=== PATIENT | female | born 1995 | race Caucasian/White ===

== ENCOUNTER 2016-06-03 14:44 | Emergency (ER) | payer OTHER ==
[~2016-06-03] VITALS: Ht 167.6 cm; Wt 121.8 kg
[2016-06-03 14:49] VITALS: BP 145/96; PULSE 106; RESP 20; O2SAT 96
--- NOTE | 2016-06-03 17:43 | ED.REPORT ---
HPI-Psychiatric Illness Date of Service Jun 03, 2016 ED Provider: Iraida Xavier History of Present Illness: depression and anxiety. effexor 150 mg daily not working, denies si, went to [facility] ER. first appointment is 2/2 Dr. Matos in [place]. primary care is Kitty caba in [facility]. Recent move from [facility]. also on control Nursing Notes Stated Complaint: DEPRESSION/ANXIETY Chief Complaint: Psychiatric Complaint Nursing Notes Reviewed: Yes Allergies: Coded Allergies: No Known Allergies (Unverified , 06/03/16) General Time Seen by MD: 17:36 Chief Complaint Anxious, Depressed Hx Obtained From: Patient Risk-Psychiatric Illness Suicide Risk Stratification Suicide Risk Factors - Adult: : Close associate suicide: Family Hx of Suicide ( cousin): Previous attempt (overdose in 2010): Prior psych admission ([facility] in [place] for 5 days 07/2010)No: Access to firearms, Alcohol use, Substance abuse RF Statements: Risk factors reviewed Past Medical History Past Medical History Denies: Asthma, Diabetes mellitus Past Surgical History denies Smoking History Never Smoker Social History Alcohol Use: Denies alcohol use Drug Use: THC (not in a year 06/03/2016) Other Social History: Occupation working at [employer] in [facility] 06/03/2016 Ambulatory Status Independent Review of Systems Basic Review of Systems Eyes: Vision NL, No discharge ENT: Hearing NL, No pain, No nasal congestion, No pharyngeal pain : No dysuria, No frequency Musculoskeletal: No extremity swelling, No extremity pain, Full range of motion , Joints NL Hematologic: No bleeding, No bruising Endocrine: No cold intolerance, No heat intolerance, No weight gain, No weight loss Allergy / Immune: No allergy Physical Exam Initial Vital Signs Vital Signs (First) Date Time Temp Pulse Resp B/P Pulse Ox O2 Delivery O2 Flow Rate FiO2 06/03/16 14:49 36.2 106 20 145/96 96 Room Air Initial VS: Reviewed, Vital signs normal Head / Eyes: Atraumatic, Normocephalic, PERRL ENT: Mucous membranes moist, Conjunctiva normal, No scleral icterus Neck: Supple, Non-tender, Full range of motion Respiratory: Breath sounds normal, Clear to auscultation, No respiratory distress Cardiovascular: Regular rate & rhythm, Heart sounds normal, Intact distal pulses Abdomen / GI: Soft, Non-tender, No guarding, No rebound, No distention Back: No CVA tenderness Lymphatic: No lymphadenopathy Extremities: Vascular intact, Neuro intact, No swelling, No tenderness Skin: Warm, Dry, No cyanosis General/Constitutional: Awake, Alert, No acute distress, Well appearing, Well developed, Well hydrated, Well nourished, Cooperative, Not toxic appearing Appearance / Presentation: Positive: Obese Neurologic: Oriented X3, Speech NL, No motor deficits Psychiatric: Affect NL Abnormal Mood/Affect: Positive: Flat affect Head / Eyes: Atraumatic, Normocephalic, PERRL ENT: Atraumatic, Airway patent, Mucous membranes moist, Pharynx NL Respiratory / Chest: Atraumatic, Breath sounds NL, Breath sounds = bilat, No respiratory distress Cardiovascular: Heart rate NL, Regular rhythm, Heart sounds NL Interpretation & Diagnostics Lab Results Interpretation Test 06/03/16 18:22 Hold Urine Received (Received) Lab Results Interpretation: urine is negative as is u tox Re-Eval/Medical Decision Med Decision/Clinical Course Socail work consult. All in agreement that patient can go home, reurn if anything changes Discharge & Departure Impression: Primary Impression: Depression Depression Type: unspecified Qualified Code: F32.9 - Major depressive disorder, single episode, unspecified Additional Impressions: Anxiety Acute situational disturbance Patient Instructions: Generalized Anxiety Disorder (ED), Major Depression (GEN) Additional Instructions: Your urine is normal. You have had a good response to the visteral. It will be continued at 50 mg 3 times a day. You are already on effexor XR at 150 mg. We can increase that by 75 mg a day to a total of 225mg. A new prescription will be provided. Please get involved in your passion. Identify goals and start making small steps that you can do to achieve your goal. Need to start daily exercise, consider [facility] They also have bicycling activities and things to explore [place]. I do expect your depression to improve but you have to participate in your recovery. Good [place]!. Keep all the appointments that you have scheduled. Referrals: KITTY CABA MD EDSupervising Provider for APC: Rahat Hogan DO copies to: KITTY CABA MD, Sue ARNP Jun 03, 2016 17:43
[2016-06-03 19:10] VITALS: BP 141/87; PULSE 100; RESP 20; O2SAT 98
--- NOTE | 2016-06-03 21:19 | NUR ---
Mental Health Evaluation Gaye Castro 06/03/2016 Reason for Hospital visit: Depression Precipitating Problem: Pt self-presented to the ED for worsening depression. PORTFOLIO STRATEGIST met with Pt at bedside. Pt reported that she has been experiencing increasing depression for the last few months with a sharp increase in symptoms over the last week. Pt indicated that she and her moved to [place] about a month ago and she just started a new job at [employer]. Pt explained that they have been living with her family while they look for a new home. Pt reported that she has been experiencing high anxiety, racing and negative thoughts. Pt indicated that she has been having a hard time getting out of bed in the morning and has missed work for the last week due to her depression and anxiety. Pt explained that she hasn't been sleeping well. Pt reported that she has been getting about 1-2 hours of sleep each night. Pt indicated that she has been going to bed and sleeping for about an hour and then she will wake up and maybe get another hour throughout the rest of the night. Pt described decreased appetite and increasing feelings of hopelessness. Pt reported that she has been crying uncontrollably and wishing she would just not wake up for the last three days. Pt explained that she has been taking Effexor and it has stopped working. Pt is requesting an adjustment to her psychiatric medications. Mental Status: Pt is a 21 year old female. Pt is well groomed and neatly attired. Pt makes appropriate eye contact. Pt's affect is blunted and her mood is depressed and anxious. Pt is tearful throughout the interview. Pt's speech is normal in rate and volume. Pt is A/O x4. Pt's thought process is clear and linear. Pt's thought content is hopeless and helpless. Pt denies SI, HI and A/V H. Psychiatric Hx: Pt reported no history of psychiatric hospitalizations. Pt is not currently enrolled in outpatient mental health treatment, however, she has scheduled an appointment with a new psychiatrist, Dr Sammy Sharma, on 06/19/2016. Pt reported that she also has an appointment with a new PCP in the next week. Pt's new PCP is Dr. Kitty Sheikh. CD Hx: Pt denied all. Pt's BAL was 0 and her UTOX was negative in the ED today. Legal Hx: Pt reported no legal history. Diagnosis: F33.1 - Major Depression Disorder, recurrent, moderate Disposition: Pt denied current SI, HI and A/V H. Pt is not gravely disabled as the result of her mental illness. Pt does not currently meet necessary acuity for inpatient hospitalization. Pt has, however, been experiencing some functional impairment. Pt was seen at [facility] for the same complaint four days ago and a next day mental health appointment was scheduled with [facility], however, [facility] does not accept Pt's medical insurance and so she was unable to enroll in services. Pt has been able to schedule an appointment with a mental health provider and has an appointment with a new PCP in the next week. PORTFOLIO STRATEGIST discussed some coping skills that might help Pt manage her anxiety and depression. Pt indicated that she felt able to remain safe at home. Pt was agreeable to return to the ED if her symptoms continue to worsen or if she felt unable to remain safe. PORTFOLIO STRATEGIST conferred with ED COVERSTITCH BINDER and the decision was made to discharge Pt home today. Pt to attend all follow up appointments. Pt to return to the ED if her symptoms worsen or she feels unable to remain safe. Jada Barger, DOMINICK, AAC
== END 2016-06-03 19:10 ==
LOC: SED 14:44
DX: F41.8 Other specified anxiety disorders (principal); F43.0 Acute stress reaction
CPT/HCPCS: 81002; 82075; 99284; Q0177

== ENCOUNTER 2016-06-25 22:04 | Inpatient (IN) | payer OTHER ==
[~2016-06-25] VITALS: Ht 167.6 cm; Wt 117.9 kg
[2016-06-25 22:12] VITALS: BP 154/103; PULSE 99; O2SAT 97
--- NOTE | 2016-06-25 22:16 | ED.REPORT ---
HPI-Psychiatric Illness Date of Service Jun 25, 2016 ED Provider: Jg Lee MD Patient is a 21 year old female with a history of anxiety, depression, prior suicide attempt via overdose with psychiatric admission who presents to the ED after she developed suicidal ideations 1 week ago, following 2 months of increasing depression.Patient does not have a definite plan of how she would commit suicide, but states that she would kill herself by either medication overdose, crashing her car, or with water. Patient has a history of cutting herself and states that she has also thought of cutting herself whenever she sees sharp object, but she has not done so. Patient states that she does not feel safe at home by herself and that she is "tired of these thoughts". Patient states that her Effexor has not been working as a mood stabilizer and she was started on a new medication by her psychiatrist, Dr. Matso, yesterday. The patient reports worsening suicidal ideations since that medication change. Patient was seen in the ED on June 03 for increasing depression, with her dose of Effexor increased from 150mg to 225mg. Patient is currently on Effexor, Wellbutrin, Clonidine, and control. Patient states that she has been on antidepressants since she was 15. The patient was admitted to a psychiatric facility in [place] at age 15 following an Ibuprofen overdose and states that this was a terrifying experience. She is open to the idea of psychiatric admission and thinks it could be helpful. Patient denies drug or alcohol abuse. The patient works at [employer] part-time, but states that her anxiety has made it difficulty for her to work. They are currently staying with her parents in [place], [place]. Patient is accompanied by her and is very tearful during initial interview. Nursing Notes Stated Complaint: SUICIDAL THOUGHTS Chief Complaint: Psychiatric Complaint Nursing Notes Reviewed: Yes Allergies: Coded Allergies: No Known Allergies (Unverified , 06/03/16) Scheduled Bupropion ER (Wellbutrin XL) 150 Mg Tab.er.24h 150 MG PO DAILY Clonidine (Clonidine) 0.1 Mg Tablet 0.1 MG PO HS Venlafaxine ER (Venlafaxine ER) 75 Mg Cap.er.24h 75 MG PO DAILY Miscellaneous Medications b-Zmnitwn-Hpd Estr/Ethin Estra (Amethia 0.15-0.03-0.01 mg Tab) 1 Each Tbdspk.3mo 1 EACH PO General Time Seen by MD: 22:09 Chief Complaint Depressed, Suicidal ideation Hx Obtained From: Patient, Spouse Arrived By: Walk-in Onset Occurred: 1 week ago (SI for the past week) Symptom Duration: Since onset Progression Since Onset: Gradually worsening Recent Healthcare: No recent hospitalization, Recent doctor visit Similar Sx Previous: Yes Risk-Psychiatric Illness Suicide Risk Stratification Suicide Risk Factors - Adult: : Family Hx of Suicide (cousin): Previous attempt (overdose in 2010): Prior psych admission (in 2010)No: Access to firearms, Alcohol use, Substance abuse RF Statements: Risk factors reviewed Past Medical History Past Medical History depression with prior suicide attempt via overdose and prior psychiatric admission anxiety Past Surgical History denies Smoking History Never Smoker Social History Alcohol Use: Denies alcohol use Drug Use: Denies drug use Other Social History: , Local resident Occupation working at [employer] [employer] 06/03/2016 Ambulatory Status Independent Review of Systems Psychiatric: Reports: Depression, Suicidal ideation Complete sys rev & neg: except as marked. Musculoskeletal: Denies: Extremity pain (no self-harm via cutting), Extremity swelling Physical Exam Initial Vital Signs Vital Signs (First) Date Time Temp Pulse Resp B/P Pulse Ox O2 Delivery O2 Flow Rate FiO2 06/25/16 22:12 36.1 99 154/103 97 Initial VS: Reviewed, Vital signs abnormal Neck: Supple, Full range of motion Extremities: Vascular intact, Neuro intact Skin: Warm, Dry, No cyanosis General/Constitutional: Awake, Alert, Well appearing Behavior: Positive: Tearful Appearance / Presentation: Positive: Obese Neurologic: Oriented X3, Speech NL, No motor deficits, No sensory deficits Psychiatric: No hallucinations (does not appear to be reacting to internal stimuli) Abnormal Mood/Affect: Positive: Depressed, Flat affect Abnormal Thinking / Perception: Positive: Suicidal, with plan (no intent) Head / Eyes: Atraumatic, Normocephalic, PERRL ENT: Airway patent, Mucous membranes moist Respiratory / Chest: Breath sounds NL, Breath sounds = bilat, No respiratory distress, No rales, No rhonchi, No wheezing Cardiovascular: Heart rate NL, Regular rhythm, Heart sounds NL Interpretation & Diagnostics Interpretation & Diagnostics: Breathalyzer: 0.00 Urine Tox Dip: All negative. Lab Results Interpretation Result Diagram: 06/25/16 23006/25/16 2301 Test 06/25/16 22:36 06/25/16 23:01 Urine Color Yellow (YELLOW) Urine Appearance Hazy (CLEAR,HAZY) Urine pH 6.0 (5.0-8.0) Urine Specific [place] 1.025 (1.003-1.035) Urine Protein Negativemg/dL (NEG,TRACE) Urine Glucose (UA) Negativemg/dL (NEGATIVE) Urine Ketones Negativemg/dL (NEGATIVE) Urine Occult Blood Negative (NEGATIVE) Urine Nitrite Negative (NEGATIVE) Urine Bilirubin Negative (NEGATIVE) Urine Urobilinogen Normalmg/dL (NORMAL) Urine Leukocyte Esterase Trace (NEGATIVE) Urine RBC 0-2/hpf (0-2) Urine WBC 6-10/hpf (0-5) Urine Epithelial Cells Moderate/hpf (NONE-MOD) Urine Crystals None seen (NONE SEEN) Urine Bacteria Moderate/hpf (NONE-FEW) Urine Hyaline Casts None/lpf (NONE) Urine Granular Casts None seen (NONE SEEN) Urine Waxy Casts None seen (NONE SEEN) Urine Red Blood Cell Casts None seen (NONE SEEN) Urine White Blood Cell Casts None seen (NONE SEEN) Urine Mucus Present (None Seen) Urine Trichomonas None seen (NONE SEEN) Urine Yeast None (NONE SEEN) Urinalysis Comment None Urine Culture Reflexed Indicated Hold Urine Received (Received) White Blood Count 7.3th/mm3 (3.8-10.1) Red Blood Count 4.72mil/mm3 (3.90-5.20) Hemoglobin 14.3g/dL (12.0-15.6) Hematocrit 41.6% (35.0-46.0) Mean Corpuscular Volume 88.1fL (81-100) Mean Corpuscular Hemoglobin 30.3pg (27.0-35.0) Mean Corpuscular Hemoglobin Concent 34.4% (32.0-37.0) Red Cell Distribution Width 12.0% (12.3-15.4) Platelet Count 263bil/L (150-400) Neutrophils (%) (Auto) 59.1% (40-74) Lymphocytes (%) (Auto) 32.7% (14-46) Monocytes (%) (Auto) 4.2% (4-12) Eosinophils (%) (Auto) 3.6% (0-5) Basophils (%) (Auto) 0.1% (0-3) Sodium Level 135mEq/L (134-144) Potassium Level 3.6mEq/L (3.5-5.2) Chloride Level 98mEq/L (97-108) Carbon Dioxide Level 21mmol/L (18-29) Blood Urea Nitrogen 11mg/dL (6-20) Creatinine 0.61mg/dL (0.57-1.00) Estimat Glomerular Filtration Rate 177mL/min (>59) Glucose Level 183mg/dL (60-99) Calcium Level 9.3mg/dL (8.5-10.1) Total Bilirubin 0.5mg/dL (0.0-1.2) Aspartate Amino Transf (AST/SGOT) 18U/L (0-50) Alanine Aminotransferase (ALT/SGPT) 18U/L (0-32) Alkaline Phosphatase 48U/L (25-150) Total Protein 7.2g/dL (6.4-8.4) Albumin 4.2g/dL (3.4-5.0) Thyroid Stimulating Hormone (TSH) 4.220uIU/mL (0.450-4.500) Hold Evangelista Top Tube Received (Received) Lab Results Interpretation: Elevated nonfasting glucose Re-Eval/Medical Decision Med Decision/Clinical Course 21-year-old female with a history of depression presents with suicidal ideation. She has had some recent adjustments in her outpatient medications. She does not feel safe at home and requests voluntary admission. Medical screening was done. There is a bed available later today so she will be held in the ER, evaluated by the psychiatrist with anticipation of admission. Her care right now is being turned over at change of shift to Dr. Darling. Source of Hx: Old records Re-Evaluation/Progress #1: Time of Eval: 22:47 Re-Evaluation/Progress Note: Called the [facility], who do not currently have a female bed available. However, they do have a bed available tomorrow at noon. Will move forward Re-Evaluation/Progress #2: Time of Eval: 23:20 Re-Evaluation/Progress Note: Informed the patient of the plan for admission to the [facility] tomorrow. Patient will stay here overnight and be admitted in the morning. Patient understands and agrees with this plan. All questions were addressed. Re-Evaluation/Progress #3: Time of Eval: 00:27 Re-Evaluation/Progress Note: Spoke with the Care Center. Patient will receive psychiatric consult from Dr. Dumont in the morning and determine if the patient will be admitted to the hospital. ED hold overnight. Re-Evaluation/Progress #4: Time of Eval: 05:00 Re-Evaluation/Progress Note: Patient has slept in the ED overnight without incident. Counseled Regarding: Diagnosis, Lab results, Need for admission Discharge & Departure Shift Change Sign-Out Patient Care Transferred: Yes Discussed Complaint(s): Yes Laboratory Evaluation: Back, reviewed by me Additonal Information: Awaiting evaluation by psychiatry, with probable admit to care center Impression: Primary Impression: Suicidal ideations Additional Impressions: Depression Depression Type: major depressive disorder Major depression recurrence: recurrent Active/Remission status: currently active Major depression episode severity: severe Psychotic features: without psychotic features Qualified Code: F33.2 - Major depressive disorder, recurrent severe without psychotic features UTI (urinary tract infection) Urinary tract infection type: acute cystitis Hematuria presence: without hematuria Qualified Code: N30.00 - Acute cystitis without hematuria )( Condition at Discharge: Clear for psych facility Referrals: OTHER,PHYSICIAN Kris Attestation Portions of this note were transcribed by Hellen Sepulveda. I, Dr. Lee personally performed the history, physical exam and medical decision-making; I reviewed and confirmed the accuracy of the information in the transcribed note. Signed by: Kris Nelson, 06/26/2016 0556 copies to: PHYSICIAN Jesus PATHAK Howard L MD Jun 25, 2016 22:16 Hellen Sepulveda Jun 25, 2016 22:32
[2016-06-25] MEDS ORDERED: BUPR-97 PO (22:50)
[2016-06-25] MEDS ORDERED: CLON0.1T PO (22:50)
[2016-06-25] MEDS ORDERED: VENL75CA95 PO (22:50)
[2016-06-25] MEDS ORDERED: [UNRECOGNIZED DRUG - REMARK] PO (22:50)
[2016-06-25 23:17] LABS: BASOPHILS % (AUTO) 0.1 % (0-3); EOSINOPHILS % (AUTO) 3.6 % (0-5); MONOCYTES % (AUTO) 4.2 % (4-12); Mean Corpuscular Hemoglobin 30.3 pg (27.0-35.0); Mean Corpuscular Volume 88.1 fL (81-100); NEUTROPHILS % (AUTO) 59.1 % (40-74); Platelet Count 263 bil/L (150-400)
[2016-06-25 23:33] LABS: APPEARANCE,URINE HAZY (CLEAR,HAZY); COLOR,URINE YELLOW (YELLOW); OCCULT BLOOD,URINE NEGATIVE (NEGATIVE); UROBILINOGEN,URINE NORMAL (NORMAL)
[2016-06-26 06:24] VITALS: BP 119/84; PULSE 93; RESP 18; O2SAT 98
--- NOTE | 2016-06-26 13:00 | NUR ---
ED SALES ORDER ADMINISTRATOR Note: Brief Note Pt was evaluated in ED by Dr Dumont and was accepted for admission to [facility] prior to the beginning of this SALES ORDER ADMINISTRATOR's shift. Pt was transferred to [facility]. DOMINICK Lopez, AAC
--- NOTE | 2016-06-26 13:38 | NUR ---
Nursing Note [id number] Admission S/O: Pt admitted to unit at [address] [facility] ED. 21 yo pt tearful & frightened. States, "I've been hospitalized as a teenager in [place]....It wasn't a good experience." Pt pleasant & cooperative. States, "My depression is getting worse. The past week I've had suicidal thoughts 3-4 times a day." Pt reports that she doesn't feel she can remain safe at home. Her psychiatrist, Dr. Souleymane Sharma, is in the process of changing her Effexor to Wellbutrin. This is causing worsening of depression. Pt takes all of her meds at . Pt lives at her parent's home with her . Pt has no medical problems. She reports not being able to get effective sleep. "I wake up every hour, stay awake for 1/2 hour, then go back to sleep." Conversation tracking clear & organized with normal rate & rhythm. Denies hallucinations & homicidal ideation. Pt reports her depression is a "7" on a scale of 1-10/10 the worst. Anxiety is a "9," & has no current suicidal ideation. A: Pt is highly anxious with frequent suicidal thoughts. P: Provide supportive environment. Monitor medications & effects.
[2016-06-26] MEDS: [UNRECOGNIZED DRUG - OTHER] PO SCH (14:40)
[2016-06-26] MEDS ORDERED: Alum-Mag Hydrox-Simeth 30 mL Suspension PO PRN (14:40)
[2016-06-26] MEDS ORDERED: Benzocaine-Menthol Lozenge 2/Pkg PO PRN (14:40)
[2016-06-26] MEDS ORDERED: Magnesium Hydroxide 10 mL Oral Concentration PO PRN (14:40)
[2016-06-26] MEDS: hydrOXYzine Pamoate 25 mg Capsule PO PRN (17:39)
[2016-06-26] MEDS: Venlafaxine XR 75 mg ER24 Capsule PO SCH (17:39)
[2016-06-26] MEDS: buPROPion XL 150 mg ER24 Tablet PO SCH (17:40)
--- NOTE | 2016-06-26 20:01 | NUR ---
Observations 0900 to 2130 Pt affect and mood was anxious, bright when engaged and social. Pt speech and eye contact was good. Pt attended group and unit activities. Pt was social with staff and peers when approached. Pt attended meals in [employer] and ate 100% of lunch and 100% of dinner. Pt maintained behavior for the shift. Pt was polite, pleasant and cooperative. Pt had a visitor and it appeared to go well. Pt took a shower. Pt was observed every 15 minutes throughout the shift as ordered.
--- NOTE | 2016-06-26 20:50 | NUR ---
Nurses PRN Patient requested and received Ambien 5mg for sleep,casino shift manager to assess response.
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
--- NOTE | 2016-06-27 05:22 | NUR ---
nursing, nights, 11-7 s/o- has appeared to sleep 2130 during q 15 minute assessments. a- no apparent distress. p- monitor behavior/emotional state, quality, times and amount of sleep, use and effect of medication. rachael
--- NOTE | 2016-06-27 05:48 | NUR ---
Observations from [id number] Pt was friendly and cooperative. She had a visitor when I came on and requested a shower after her visitor left. Pt appeared asleep at 2130 and has remained asleep throughout the night. Pt has been monitored every 15 minutes as directed.
[2016-06-27] MEDS: buPROPion XL 150 mg ER24 Tablet PO SCH (07:31)
[2016-06-27] MEDS: hydrOXYzine Pamoate 25 mg Capsule PO PRN ×2 (08:20→19:06)
[2016-06-27] MEDS: [UNRECOGNIZED DRUG - OTHER] PO SCH ×2 (08:23→20:45)
[2016-06-27 10:15] VITALS: BP 136/77; PULSE 108; RESP 16
--- NOTE | 2016-06-27 11:38 | NUR ---
Nursing Day Shift- S- "My depression is a little better, I haven't thought of harming myself today. I slept well last night and I haven't been." O- Pt. was awake and dressed for breakfast. She appeared soft spoken, but social with peers. She requested and received Tylenol 650 mg at 0800 for a headache rated 5/10. Pt. reported it had been helpful. She requested and received Vistaril 25 mg for anxiety rated 7/10 at 0900. Pt. reported it was helpful, but not as effective as 50 mg had been. She then went on to say that 50 mg had created a foggy feeling that she did not like. A- Improved sleep and decreased depression. P- Cont. BHTP.
[2016-06-27] MEDS: Venlafaxine XR 75 mg ER24 Capsule PO SCH (17:17)
--- NOTE | 2016-06-27 17:40 | NUR ---
[facility] Day Shift Pt maintained behavioral control throughout the shift. Pt affect appears bright, euthymic. Pt spends most of the shift resting in her room and interacting with peers/engaging in unit activities throughout the shift. Pt is pleasant and appropriate with staff and peers when active on the unit. Pt attended community meeting in the AM and all group activities throughout the shift. Pt attended all meals and ate approx 75% of all meals.
--- NOTE | 2016-06-27 18:16 | PCM.PNPSY ---
Subjective Date of Service Jun 27, 2016 Subjective The patient reported that she is feeling "a lot better." She reports that her anxiety is still present but feels that it is improving. She reports that her came back to bring things and she has talked to him several times on the phone which has helped. She reports that she slept reasonably well despite the fact people were checking on her and denied any nightmares. No side effects , reports that he is tolerating restart of medication. Sleep: 8+ hours Appetite: "Not starving" which is an improvement as previously Effexor had caused increased appetite Suicidal and homicidal ideation: denies Auditory hallucinations: denies Visual hallucinations: denies Other Psychotic Symptoms: N/A Anxiety: 08/25 Depression: -08/25 Current Medications Current Medications Acetaminophen 650 mg Q4H PRN PO Last administered on 06/27/16 07:31; Admin Dose 650 MG; Start 06/26/16 at 14:40 Bupropion HCl 150 mg DAILY PO Last administered on 06/27/16 07:31; Admin Dose 150 MG; Start 06/26/16 at 14:40 Hydroxyzine Pamoate 25 mg Q4H PRN PO Last administered on 06/27/16 08:20; Admin Dose 25 MG; Start 06/26/16 at 14:40 Patient Own Medication 1 ea DAILY PO Last administered on 06/26/16 14:40; Admin Dose 1 EA; Start 06/26/16 at 14:40 Prazosin HCl 1 mg HS PO Last administered on 06/26/16 20:50; Admin Dose 1 MG; Start 06/26/16 at 21:00 Venlafaxine HCl 150 mg DAILYWD PO Last administered on 06/27/16 17:17; Admin Dose 150 MG; Start 06/26/16 at 17:30 Zolpidem Tartrate 5 mg HS PRN PO Last administered on 06/26/16 20:50; Admin Dose 5 MG; Start 06/26/16 at 14:40 Mental Status Exam Vital Signs Vital Signs Date Time Temp Pulse Resp B/P Pulse Ox O2 Delivery O2 Flow Rate FiO2 06/27/16 10:15 36.7 108 16 136/77 Appearance: Neat/well groomed Attitude: Pleasant, Cooperative Behavior: Overtly anxious Affect: Restricted Mood: Dysthymic, Anxious Thought Process/Associations: Logical/Sequential, Goal Directed Speech Production: Normal Speech Rate: Normal Speech Articulation: Normal Thought Content: Appropriate Danger to Self/Suicidal Ideati: None Danger to Others: None Hallucinations: Auditory (Denies), Visual (Denies) Consciousness: Alert Orientation: Person, Place, Date, Situation Memory: Grossly Intact Estimate Intellectual Function: Average Basis for IQ estimate: Awareness current events, Word use/vocabulary, Educational history, Employment history Attention/Concentration & Cogn: Grossly Intact Insight: Good Judgement: Good Result Diagram: 06/25/161 06/25/16 230 Mental Health Plan The patient is a 21 year old female with a history of depression and borderline personality disorder who presents with worsening suicidal ideation in the context of cross-taper of antidepressants. Patient appears to be not tolerating the rapid taper and may benefit from a slower-cross taper. Clonidine does not appear to be helping anxiety and we discussed switching to prazosin given trauma related nightmares. The patient reports that her mood is improved and prazosin appears to be helping with nightmares. We discussed that we will likely leave the Effexor at the current dose prior to discharge and consider increasing the Wellbutrin but this may be used as an augmentation strategy instead. Patient agreeable to plan. [place] AXIS I: Major Depression, recurrent AXIS II: Borderline personality traits vs. disorder AXIS III: None acute AXIS IV: Moderate AXIS V: GAF 35 Treatments 1. The patient is currently denying suicidal ideation and agrees to notify staff should they return, as such, 1:1 staffing is not indicated at this time. 2. The patient will meet with the treatment team on a daily basis to assess symptoms, side effects, and response to treatment. 3. The patient is encouraged to participate in group and milieu activities. 4. Continue Effexor 150mg nightly. 5. Wellbutrin 150mg po daily. 6. Prazosin 1mg nightly and increase as tolerated. 7. Patient to use own control pills. 8. Anticipated length of stay 3-5 days. Elijah Dumont MD Jun 27, 2016 18:16
--- NOTE | 2016-06-27 19:24 | NUR ---
NURSING NOTE [id number] Orientation= x4 Mood= "anxious" Affect= pleasant, calm, cooperative Behavior= Spent first part of shift in the group room using Wii w/her peers, then socialized and spent time comforting a peer. Her visited. Thought processes= endorsing anxiety, depression, denies SI/HI/AH/VH PRNs: Vistaril 25 mg @ 19:06 for 10/25 anxiety
--- NOTE | 2016-06-28 04:30 | NUR ---
Nursing Note Noc Shift Pt asleep upon arrival to unit. Sleep time noted 2130 with 7 hr uninterrupted sleep. No PRN's given on shift, Q15 min safety checks per protocol, no distress noted. WCTM sleep, behavior, safety
[2016-06-28] MEDS: buPROPion XL 150 mg ER24 Tablet PO SCH (07:49)
--- NOTE | 2016-06-28 09:48 | PCM.DIMED ---
Discharge Instructions Date of Service Jun 28, 2016 Dates of Hospitalization Jun 26, 2016 at 11:13 Discharge Diagnosis Discharge Diagnosis AXIS I: Major Depression, recurrent AXIS II: Borderline personality disorder, by history AXIS III: None acute AXIS IV: Moderate AXIS V: GAF 50 Diet No restrictions Activity No restrictions Patient Instructions Should you have any thoughts of harming yourself or others, please call the crisis line, your provider, 911, or go to the nearest Emergency Department. Do not change or discontinue your medications without discussing with your provider. You have been given a prescription for 30 days supply of your medication Discuss with your provider increasing Prazosin if nightmares, sleep disruption returns. Discuss with your provider either increasing bupropion and slowly tapering venlafaxine or remaining on both medications if your mood has satisfactorily stabilized. Follow-up plan Primary Care Kitty Sheikh PA-C on 07/01/16 at 9:00am [address] Psych[address] follow-up Dr. Sammy Sharma July 22, 2016 or TBD [address] [place] [address] Elijah Dumont MD Jun 28, 2016 09:48
[2016-06-28] MEDS ORDERED: PRAZ1CAP PO (09:50)
[2016-06-28] MEDS ORDERED: BUPR-97 PO (09:50)
[2016-06-28] MEDS ORDERED: HYDR-3797 PO (09:50)
[2016-06-28] MEDS ORDERED: VENL75CA PO (09:50)
--- NOTE | 2016-06-28 12:45 | NUR ---
Nursing Discharge- Pt. was discharged to home at 1130 today as planned. She has slept well per report. Pt. denied suicidal thoughts or anxiety and rated her depression as 2/10. She was picked up by her spouse, and planned on joining her parents for dinner tonight. She appeared upbeat and future oriented. Pt's prescriptions were faxed to her chosen pharmacy and she left with the hard copies. She expressed an understanding of her medication and follow up plans. All belongings were returned along with home medications from the pharmacy.
--- NOTE | 2016-06-28 14:05 | NUR ---
Escalator Service Mechanic/Counselor: S: "My visit with my last night went really well." O: Patient slept 8.5+ hours last night as per staff. She denies S/I and H/I. She denies auditory and visual hallucinations. Depression is 0/10 and anxiety is 0/10. Out-patient appointment: Kitty Sheikh PA-C, 07/01/16 at 9:00am. A: Patient is cooperative, pleasant, hopeful, bright affect, future oriented. P: Follow care plan, coordinate out-patient providers.
[2016-06-28 16:42] VITALS: BP 142/87; PULSE 97; RESP 16
[2016-06-28] MEDS ORDERED: [UNRECOGNIZED DRUG - OTHER] PO SCH (21:00)
--- NOTE | 2016-06-29 19:17 | PCM.DC.MED ---
Discharge Summary Date of Service Jun 28, 2016 Dates of Hospitalization Date of Hospital Admission Jun 26, 2016 at 11:13 Date of Discharge: Jun 28, 2016 Providers: Admitting Physician: Dayne Perry MD Primary Care Physician: Howard Attending Physician: Dayne Perry MD Diagnosis at Time of Discharge Diagnosis at Time of Discharge AXIS I: Major Depression, recurrent AXIS II: Borderline personality disorder, by history AXIS III: None acute AXIS IV: Moderate AXIS V: GAF 50 Brief History Reason for Admission The patient reports that she has had 6+ years of depression and had worsening suicidal ideation in the context of a recent medication change. Admission Status: Voluntary Source of Information: Patient Interview, Chart Review Referral Agency/[facility] ER Chief Complaint "I've been on the Effexor for 6 years and it hasn't been working." History of Present Illness Patient is a 21 year old female with a history of anxiety, depression, prior suicide attempt via overdose with psychiatric admission who presents to the ED after she developed worsening suicidal ideation one week ago. The patient reports that she has been on Effexor for 6 years and she was recently switched to bupropion. She reports Effexor had been increased from 150mg daily to 225mg daily with little effect or change after several weeks and so was switched to bupropion XL 150mg daily and Effexor was dropped to 75mg daily. She reports since then she has had thoughts of swallowing pills, cutting her self, or driving her car into the sea. She reported that she was not sure she could remain safe at home and so presented to the hospital. She reports she first developed depression around 13 or 14 and was diagnosed with depression at age 15. She reports being on Effexor XR 75mg for 5+ years and was increased to 150mg 5 months ago and was increased to 225mg on 06/03/16. She has also been using hydroxyzine for anxiety. She denies hallucinations, manic symptoms, or OCD. She does use counting in her head for self soothing. The patient reports having been diagnosed with borderline personality disorder with self-harm behaviors in the past and fears of abandonment. She reports this causes some difficulty in her marriage, but this has been resolved. The patient reports having nightmares related to a past hospital stay at age 15 which she found very traumatizing. Presenting Symptoms: Depression (Weeks) Vegetative Functioning: Sleep (Decreased), Appetite (Decreased), Energy (Normal ), Libido (Decreased) Hospital Course The patient is a 21 year old female with a history of depression and borderline personality disorder who presented with worsening suicidal ideation in the context of cross-taper of antidepressants. The patient appears to have not been tolerating the rapid taper of venlafaxine and may benefit from a slower- cross taper. Clonidine does not appear to be helping anxiety and we discussed switching to prazosin given trauma related nightmares. The patient's bupropion was maintained at 150 mg daily and venlafaxine was increased to 150 mg daily. Prazosin was added at 1 mg nightly. The patient reported a significant improvement in her mood during the course of hospitalization and her sleep significantly improved. Despite multiple potentially triggering events on the unit, she tolerated them well without distress. The patient was advised to discuss with her psychiatrist whether she should continue on both venlafaxine and bupropion or whether to taper off venlafaxine. The patient was also advised to discuss with her provider whether further titration of prazosin was warranted. At the time of discharge, the patient was reporting her mood was "good". Sleep was reported as "pretty good," 8.5+ hours per staff. Appetite was reported as "okay." Her anxiety was reported as 1/10 and depression as 0/10. She denied auditory or visual hallucinations and any thought, intent or plan of hurting herself or others. She denied medication side effects. Exam Vital Signs (Last) Date Time Temp Pulse Resp B/P Pulse Ox O2 Delivery O2 Flow Rate FiO2 06/28/16 16:42 36.3 97 16 142/87 06/26/16 06:24 98 Room Air Exam Discharge Mental Status Exam Appearance: Neat/well groomed Attitude: Pleasant, Cooperative Behavior: Good eye contact, mild anxiety noted Affect: Restricted Mood: Mildly anxious Thought Process/Associations: Logical/Sequential, Goal Directed Speech Production: Normal Speech Rate: Normal Speech Articulation: Normal Thought Content: Appropriate Danger to Self/Suicidal Ideation: None Danger to Others: None Hallucinations: Auditory (Denies), Visual (Denies) Consciousness: Alert Orientation: Person, Place, Date, Situation Memory: Grossly Intact Estimate Intellectual Function: Average Basis for IQ estimate: Awareness current events, Word use/vocabulary, Educational history, Employment history Attention/Concentration & Cognition: Grossly Intact Insight: Good Judgement: Good Test 06/25/16 22:36 06/25/16 23:01 Urine Color Yellow (YELLOW) Urine Appearance Hazy (CLEAR,HAZY) Urine pH 6.0 (5.0-8.0) Urine Specific Morris 1.025 (1.003-1.035) Urine Protein Negativemg/dL (NEG,TRACE) Urine Glucose (UA) Negativemg/dL (NEGATIVE) Urine Ketones Negativemg/dL (NEGATIVE) Urine Occult Blood Negative (NEGATIVE) Urine Nitrite Negative (NEGATIVE) Urine Bilirubin Negative (NEGATIVE) Urine Urobilinogen Normalmg/dL (NORMAL) Urine Leukocyte Esterase Trace (NEGATIVE) Urine RBC 0-2/hpf (0-2) Urine WBC 6-10/hpf (0-5) Urine Epithelial Cells Moderate/hpf (NONE-MOD) Urine Crystals None seen (NONE SEEN) Urine Bacteria Moderate/hpf (NONE-FEW) Urine Hyaline Casts None/lpf (NONE) Urine Granular Casts None seen (NONE SEEN) Urine Waxy Casts None seen (NONE SEEN) Urine Red Blood Cell Casts None seen (NONE SEEN) Urine White Blood Cell Casts None seen (NONE SEEN) Urine Mucus Present (None Seen) Urine Trichomonas None seen (NONE SEEN) Urine Yeast None (NONE SEEN) Urinalysis Comment None Urine Culture Reflexed Indicated Hold Urine Received (Received) White Blood Count 7.3th/mm3 (3.8-10.1) Red Blood Count 4.72mil/mm3 (3.90-5.20) Hemoglobin 14.3g/dL (12.0-15.6) Hematocrit 41.6% (35.0-46.0) Mean Corpuscular Volume 88.1fL (81-100) Mean Corpuscular Hemoglobin 30.3pg (27.0-35.0) Mean Corpuscular Hemoglobin Concent 34.4% (32.0-37.0) Red Cell Distribution Width 12.0% (12.3-15.4) Platelet Count 263bil/L (150-400) Neutrophils (%) (Auto) 59.1% (40-74) Lymphocytes (%) (Auto) 32.7% (14-46) Monocytes (%) (Auto) 4.2% (4-12) Eosinophils (%) (Auto) 3.6% (0-5) Basophils (%) (Auto) 0.1% (0-3) Sodium Level 135mEq/L (134-144) Potassium Level 3.6mEq/L (3.5-5.2) Chloride Level 98mEq/L (97-108) Carbon Dioxide Level 21mmol/L (18-29) Blood Urea Nitrogen 11mg/dL (6-20) Creatinine 0.61mg/dL (0.57-1.00) Estimat Glomerular Filtration Rate 177mL/min (>59) Glucose Level 183mg/dL (60-99) Calcium Level 9.3mg/dL (8.5-10.1) Total Bilirubin 0.5mg/dL (0.0-1.2) Aspartate Amino Transf (AST/SGOT) 18U/L (0-50) Alanine Aminotransferase (ALT/SGPT) 18U/L (0-32) Alkaline Phosphatase 48U/L (25-150) Total Protein 7.2g/dL (6.4-8.4) Albumin 4.2g/dL (3.4-5.0) Thyroid Stimulating Hormone (TSH) 4.220uIU/mL (0.450-4.500) Hold Evangelista Top Tube Received (Received) Discharge Medications Discharge Medications Bupropion ER (Wellbutrin XL) 150 Mg Tab.er.24h 150 MG PO DAILY Prescribed by: DAYNE PERRY MD Prazosin (Minipress) 1 Mg Capsule 1 MG PO HS Prescribed by: DAYNE PERRY MD Venlafaxine ER (Effexor XR) 75 Mg Capsule 150 MG PO DAILYWD Prescribed by: DAYNE PERRY MD As needed Hydroxyzine Pamoate (HydrOXYzine Pamoate) 25 Mg Capsule 25 MG PO Q4H PRN PRN anxiety/agitation/insomnia Prescribed by: DAYNE PERRY MD Miscellaneous Medications x-Rybpglg-Wet Estr/Ethin Estra (Amethia 0.15-0.03-0.01 mg Tab) 1 Each Tbdspk.3mo 1 EACH PO (Reported) Followup Plan Disposition: The patient was requesting discharge and denied suicidal ideation with no further indication for inpatient hospitalization. She was discharged into the care of her . The patient verbally consented to take the prescribed medications. The patient verbally expressed understanding of the risks, benefits, alternative treatment options, and risks of not taking the prescribed medication. The patient verbally expressed understanding of the medication instructions, that he will adhere to the prescribed medication, and that he will go to all aftercare scheduled appointments. Follow-up plan Primary Care Kitty Sheikh PA-C on 07/01/16 at 9:00am [address] [address] follow-up Dr. Sammy Sahrma July 22, 2016 or TBD [address] [place] [address] Discharge Diet: No restrictions Discharge Activity: No restrictions Patient Instructions Should you have any thoughts of harming yourself or others, please call the crisis line, your provider, 911, or go to the nearest Emergency Department. Do not change or discontinue your medications without discussing with your provider. You have been given a prescription for 30 days supply of your medication Discuss with your provider increasing Prazosin if nightmares, sleep disruption returns. Discuss with your provider either increasing bupropion and slowly tapering venlafaxine or remaining on both medications if your mood has satisfactorily stabilized. Dayne Perry MD Jun 29, 2016 19:17
== END 2016-06-28 11:35 | disposition home or self-care (01) | DRG 885 ==
LOC: SED 22:04 → MHC 06-26 11:13
PROVIDERS: ADMIT Psychiatry & Neurology Psychiatry; ATTEND Psychiatry & Neurology Psychiatry
DX: F33.2 Major depressive disorder, recurrent severe without psychotic features (principal); R45.851 Suicidal ideations; Z91.5 Personal history of self-harm; F60.3 Borderline personality disorder